=== PATIENT | female | born 1955 | race Caucasian/White ===

== ENCOUNTER → 2018-11-30 13:29 | Outpatient (REF) | payer OTHER, MEDICARE, SELFPAY ==
[2018-11-30 13:59] LABS: Influenza A and B by PCR Rapid Negative (Negative)
== END ==
LOC: LAB 13:29
PROVIDERS: Family Provider Family Medicine; PCP Family Medicine; Visit Provider Family Medicine
DX: R05 Cough (principal)
CPT/HCPCS: 87400

== ENCOUNTER → 2019-01-11 08:05 | Outpatient (CLI) | payer OTHER, SELFPAY ==
--- NOTE | 2019-01-11 08:17 | DI.CT.S_ITS ---
PROCEDURE: CT SINUS SCREEN WO CON INDICATIONS: Chronic sinusitis, unspecified TECHNIQUE: Noncontrast 3.0 mm axial images acquired from the frontal sinuses to the mid-sella, with coronal and sagittal reformats. For radiation dose reduction, the following was used: automated exposure control, adjustment of mA and/or kV according to patient size. COMPARISON: None. FINDINGS: Image quality: Excellent. Maxillary Sinuses: No bony remodeling or destruction. Sinuses are clear except for a moderately large mucous retention cyst that is sharply demarcated within the inferior right maxillary sinus. Ethmoid Air Cells: No bony remodeling or destruction. Sinuses are clear. Sphenoid Sinuses: No bony remodeling or destruction. Sinuses are clear. Frontal Sinuses: No bony remodeling or destruction. Sinuses are clear. Ostiomeatal Complexes: Ostiomeatal complexes are patent. No Lauren cells. Miscellaneous: Visualized intra-orbital contents are normal. No veronica bullosa or paradoxical turbinate curvature. No nasal septal deviation. IMPRESSION: Right maxillary sinus moderately large mucous retention cyst without associated mucosal thickening or air-fluid level elsewhere. By this examination no acute sinusitis is found. Dictated by: Eduardo Hamm M.D. on 01/11/2019 at 9:08 Approved by: Eduardo Hamm M.D. on 01/11/2019 at 9:30
== END ==
PROVIDERS: PCP Family Medicine; Visit Provider Family Medicine
DX: J32.9 Chronic sinusitis, unspecified (principal); J34.1 Cyst and mucocele of nose and nasal sinus
CPT/HCPCS: 70486

== ENCOUNTER → 2019-01-14 13:18 | Outpatient (CLI) | payer OTHER, SELFPAY ==
--- NOTE | 2019-01-14 | DI.RAD.S_ITS ---
PROCEDURE: XR CHEST 2V INDICATIONS: COUGH TECHNIQUE: 2 views of the chest were acquired. COMPARISON: [facility], , CHEST 2 VIEW, 12/20/2009, 15:30. FINDINGS: Surgical changes and devices: Extensive posterior spinal instrumentation as before. Lungs and pleura: Lungs are clear. No pleural effusions or pneumothorax. Mediastinum: Mediastinal contours are normal. Heart size is normal. Bones and chest wall: No suspicious bony abnormalities. Soft tissues appear unremarkable. IMPRESSION: No acute disease Dictated by: Satish Addison M.D. on 01/14/2019 at 17:07 Approved by: Satish Addison M.D. on 01/14/2019 at 17:08
== END ==
PROVIDERS: PCP Family Medicine; Visit Provider Family Medicine
DX: R05 Cough (principal)
CPT/HCPCS: 71046

== ENCOUNTER → 2019-02-04 14:55 | Outpatient (ROUT) | payer OTHER, SELFPAY ==
[2019-02-04 15:30] LABS: Influenza A and B by PCR Rapid Negative (Negative)
== END ==
PROVIDERS: PCP Family Medicine; Visit Provider Family Medicine
DX: R52 Pain, unspecified (principal); R50.9 Fever, unspecified
CPT/HCPCS: 87400

== ENCOUNTER → 2019-02-19 15:02 | Outpatient (CLI) | payer OTHER, MEDICARE, SELFPAY ==
--- NOTE | 2019-02-19 | DI.RAD.S_ITS ---
PROCEDURE: XR CHEST 2V INDICATIONS: COUGH TECHNIQUE: 2 views of the chest were acquired. COMPARISON: [facility], , XR CHEST 2V, 01/14/2019, 13:20. [facility], , CHEST 2 VIEW, 12/20/2009, 15:30. FINDINGS: Surgical changes and devices: Franco rods stable over time. Lungs and pleura: Lungs are clear. No pleural effusions or pneumothorax. Mediastinum: Mediastinal contours are normal. Heart size is normal. Bones and chest wall: No suspicious bony abnormalities. Soft tissues appear unremarkable. IMPRESSION: Source of cough not found. Dictated by: Eduardo Hamm M.D. on 02/19/2019 at 15:42 Approved by: Eduardo Hamm M.D. on 02/19/2019 at 15:44
== END ==
PROVIDERS: PCP Family Medicine; Visit Provider Family Medicine
DX: R05 Cough (principal)
CPT/HCPCS: 71046

== ENCOUNTER → 2019-03-19 17:44 | Outpatient (CLI) | payer OTHER, MEDICARE, SELFPAY ==
[2019-03-19 18:20] LABS: Add Manual Diff / Slide Review NO; Basophils Absolute Auto 100 /uL (0-100); Basophils Percent Auto 0.7 % (0-2); Eosinophils Absolute Auto 300 /uL (0-450); Hemoglobin 13.4 g/dL (12.0-16.0); Lymphocytes Absolute Auto 2400 /uL (1100-4500); Mean Corpuscular HGB Conc 33.4 % (30-36); Mean Corpuscular Hemoglobin 30.6 PG (26-34); Mean Corpuscular Volume 91.5 fL (80-100); Monocytes Absolute Auto 1000 /uL (0-900); Monocytes Percent Auto 10.5 % (3-14); Neutrophils Absolute Auto 5600 /uL (1500-7000); Neutrophils Percent Auto 59.8 % (50-75); Platelet Count 347 X10^3/uL (150-400); Red Blood Cell Count 4.37 X10^6/uL (4.0-5.2); Red Cell Distribution Width 14.9 % (11.6-14.8); White Blood Cell Count 9.4 X10^3/uL (4.5-11.0)
[2019-03-19 18:29] LABS: C-Reactive Protein Quant 1.6 mg/dL (<1.0)
[2019-03-19 18:45] LABS: Erythrocyte Sedimentation Rate 20 MM/HR (0-20)
== END ==
PROVIDERS: PCP Family Medicine; Visit Provider Family Medicine
DX: J32.9 Chronic sinusitis, unspecified (principal)
CPT/HCPCS: 36415; 85025; 85651; 86140

== ENCOUNTER → 2019-03-23 10:32 | Outpatient (CLI) | payer OTHER, SELFPAY ==
--- NOTE | 2019-03-23 | DI.CT.S_ITS ---
PROCEDURE: CT SINUS SCREEN WO CON INDICATIONS: Chronic sinusitis, unspecified TECHNIQUE: Noncontrast 3.0 mm axial images acquired from the frontal sinuses to the mid-sella, with coronal and sagittal reformats. For radiation dose reduction, the following was used: automated exposure control, adjustment of mA and/or kV according to patient size. COMPARISON: [facility], CT, CT SINUS SCREEN WO CON, 01/11/2019, 8:14. FINDINGS: Image quality: Excellent. Bilateral partial opacification of the anterior ethmoid air cells. There is near-complete opacification of the right maxillary sinus. Mild left maxillary sinus because of thickening. Mild opacification of the anterior frontal sinuses bilaterally. Sphenoid sinuses appear clear. Ostiomeatal Complexes: Ostiomeatal complexes are opacified bilaterally. No Lauren cells. Miscellaneous: Visualized intra-orbital contents are normal. No veronica bullosa or paradoxical turbinate curvature. No nasal septal deviation. IMPRESSION: Bilateral ethmoid, maxillary and frontal sinus disease which appears diffusely progressed since prior study dated 01/09/19 Opacified ostiomeatal complexes bilaterally, new since the prior study Dictated by: Satish Addison M.D. on 03/23/2019 at 13:55 Approved by: Satish Addison M.D. on 03/23/2019 at 13:59
== END ==
PROVIDERS: PCP Family Medicine; Visit Provider Family Medicine
DX: J32.8 Other chronic sinusitis (principal)
CPT/HCPCS: 70486

== ENCOUNTER → 2019-08-06 13:20 | Outpatient (ROUT) | payer OTHER, SELFPAY ==
[2019-08-06 13:49] LABS: Influenza A and B by PCR Rapid Negative (Negative)
== END ==
PROVIDERS: PCP Family Medicine; Visit Provider Nurse Practitioner Family
DX: R50.9 Fever, unspecified (principal); R19.7 Diarrhea, unspecified; R11.0 Nausea; R52 Pain, unspecified
CPT/HCPCS: 87502

== ENCOUNTER → 2019-08-09 12:54 | Outpatient (CLI) | payer OTHER, SELFPAY ==
--- NOTE | 2019-08-09 | DI.RAD.S_ITS ---
PROCEDURE: XR CHEST 2V INDICATIONS: COUGH TECHNIQUE: 2 views of the chest were acquired. COMPARISON: [facility], CR, XR CHEST 2V, 01/14/2019, 13:20. [facility], CR, XR CHEST 2V, 02/19/2019, 15:08. FINDINGS: Surgical changes and devices: Prostatic and lumbar spine fusion. Lungs and pleura: Left basilar infiltrate. No pleural effusions or pneumothorax. Mediastinum: Mediastinal contours are normal. Heart size is normal. Bones and chest wall: No suspicious bony abnormalities. Soft tissues appear unremarkable. IMPRESSION: Left basilar infiltrate consistent with pneumonia. Dictated by: Kyra Velasquez M.D. on 08/09/2019 at 13:50 Approved by: Kyra Velasquez M.D. on 08/09/2019 at 14:01
== END ==
PROVIDERS: PCP Family Medicine; Visit Provider Family Medicine
DX: R05 Cough (principal); Z98.1 Arthrodesis status
CPT/HCPCS: 71046

== ENCOUNTER → 2019-09-03 07:53 | Outpatient (CLI) | payer OTHER, SELFPAY ==
--- NOTE | 2019-09-03 | DI.RAD.S_ITS ---
PROCEDURE: XR CHEST 2V INDICATIONS: COUGH TECHNIQUE: 2 views of the chest were acquired. COMPARISON: [facility], CR, XR CHEST 2V, 08/09/2019, 12:55. FINDINGS: Surgical changes and devices: Thoracolumbar fixation rods are present. Lungs and pleura: Decreased appearance of previously identified left lower lobe opacity. Minimal residual is noted. Mediastinum: Mediastinal contours are normal. Heart size is normal. Bones and chest wall: No suspicious bony abnormalities. Soft tissues appear unremarkable. IMPRESSION: Minimal residual opacity in the left lobe compared to prior exam. Dictated by: Luna Gonzales M.D. on 09/03/2019 at 9:11 Approved by: Luna Gonzales M.D. on 09/03/2019 at 9:12
== END ==
PROVIDERS: PCP Family Medicine; Visit Provider Family Medicine
DX: R05 Cough (principal)
CPT/HCPCS: 71046

== ENCOUNTER → 2019-10-11 08:14 | Outpatient (CLI) | payer OTHER, SELFPAY ==
--- NOTE | 2019-10-11 | DI.RAD.S_ITS ---
PROCEDURE: XR CHEST 2V INDICATIONS: PNEUMONIA TECHNIQUE: 2 views of the chest were acquired. COMPARISON: [facility], CR, XR CHEST 2V, 09/03/2019, 8:00. [facility], CR, XR CHEST 2V, 08/09/2019, 12:55. FINDINGS: Surgical changes and devices: Stable over time, posterior spine fixation. Lungs and pleura: Lungs are clear except for minimal linear scarring left lung base behind the heart. No pleural effusions or pneumothorax. Mediastinum: Mediastinal contours are normal except for a small hiatal hernia behind the heart. Heart size is normal. Bones and chest wall: No suspicious bony abnormalities. Soft tissues appear unremarkable. IMPRESSION: Minimal linear scarring found behind the heart, small hiatal hernia at the medial left lung base posteriorly. No definite pneumonia found. Dictated by: Eduardo Hamm M.D. on 10/11/2019 at 9:29 Approved by: Eduardo Hamm M.D. on 10/11/2019 at 9:38
== END ==
PROVIDERS: PCP Family Medicine; Visit Provider Family Medicine
DX: J18.9 Pneumonia, unspecified organism (principal); K44.9 Diaphragmatic hernia without obstruction or gangrene
CPT/HCPCS: 71046

== ENCOUNTER → 2019-10-29 07:00 | Outpatient (CLI) | payer OTHER, SELFPAY ==
--- NOTE | 2019-10-29 | DI.CT.S_ITS ---
PROCEDURE: CT CHEST W CON INDICATIONS: Pneumonia, unspecified organism TECHNIQUE: After the administration of intravenous contrast, 5 mm thick sections acquired from the pulmonary apices to the posterior costophrenic angles. 1 mm axial lung, 5 mm thick coronal and sagittal reformats and 7 mm axial MIP were acquired. For radiation dose reduction, the following was used: automated exposure control, adjustment of mA and/or kV according to patient size. COMPARISON: [facility], CR, XR CHEST 2V, 10/11/2019, 8:11. FINDINGS: Image quality: Excellent. Lungs and pleura: Linear atelectasis versus scarring, left lung base. No pleural effusions or pneumothorax. Central and peripheral airways are patent and normal in caliber. Mediastinum: Heart size is normal. No pericardial effusion. No mediastinal or hilar adenopathy by size criteria. Thoracic aorta and central pulmonary arteries are normal in size. Esophagus is normal in caliber. Moderate hiatal hernia. Bones and chest wall: Bilateral Franco rods. No suspicious bony lesions. No vertebral body compression fractures. No axillary or supraclavicular adenopathy by size criteria. Thyroid gland contains a 1.1 cm right thyroid nodule and a subcentimeter left thyroid nodule.. Abdomen: Hepatic steatosis. 2 probable hepatic cysts versus hemangiomata. IMPRESSION: 1. Linear atelectasis versus scarring, left lung base. 2. Moderate hiatal hernia. 3. Bilateral small thyroid nodules. Dictated by: Mehran Castillo M.D. on 10/29/2019 at 10:16 Approved by: Mehran Castillo M.D. on 10/29/2019 at 10:19
[2019-10-29 07:36] LABS: BUN Creatinine Ratio 25.7 (6-22); Blood Urea Nitrogen 18 mg/dL (7-17); Estimated Glomerular Filt Rate > 60.0 mL/min (>60)
== END ==
PROVIDERS: PCP Family Medicine; Referring Provider Family Medicine; Visit Provider Family Medicine
DX: J18.9 Pneumonia, unspecified organism (principal); K44.9 Diaphragmatic hernia without obstruction or gangrene; E04.2 Nontoxic multinodular goiter
CPT/HCPCS: 36415; 71260; 82565; 84520; Q9967

== ENCOUNTER → 2019-11-05 07:11 | Outpatient (CLI) | payer OTHER, SELFPAY ==
--- NOTE | 2019-11-05 | DI.US.S_ITS ---
PROCEDURE: US THYROID INDICATIONS: LIVER CYST AND THYROID NODULE TECHNIQUE: Real-time scanning was performed of the thyroid gland, with image documentation. COMPARISON: None. FINDINGS: Right: Thyroid lobe measures 4.4 x 1.9 x 1.8 cm, and is homogeneous in echotexture. Multiple colloid cysts. Left: Thyroid lobe measures 3.8 x 1.4 x 1.5 cm, and is homogenous in echotexture. Isthmus: 3.0 mm thick. IMPRESSION: Multiple colloid cysts bilaterally. Dictated by: Yung Owens [facility] Interpreted: Daniel Owusu MD on 11/05/2019 at 9:57 Approved by: Daniel Owusu M.D. on 11/05/2019 at 11:22
--- NOTE | 2019-11-05 | DI.US.S_ITS ---
PROCEDURE: US ABDOMEN COMPLETE INDICATIONS: LIVER CYST AND THYROID NODULE TECHNIQUE: Real-time scanning was performed of the abdominal and retroperitoneal organs, with image documentation. COMPARISON: [facility], CT, CT CHEST W CON, 10/29/2019, 7:58. [facility], US, ABDOMEN COMPLETE, 12/20/2009, 13:37. FINDINGS: Liver: Measures 15.9 cm and appears within normal limits in size. Increased in echogenicity. A few anechoic cyst with posterior acoustic enhancement. For example in the right lobe peripherally at the dome 1.7 x 1.2 x 1.6 cm; and subcentimeter cluster of cysts. Gallbladder: Nondilated. No stones or sludge. Normal gallbladder wall thickness. No pericholecystic fluid. Negative sonographic Rowe's sign. Biliary ducts: Not well-seen. No intrahepatic ductal dilatation identified. CHD measures 3 mm. Pancreas: Visualized portions of the pancreas are sonographically normal. Spleen: Spleen is normal in size and homogeneous in echotexture. Kidneys: Right kidney measures 10.9 cm. Left kidney measures 11.8 cm. Extrarenal pelvis versus small peripelvic cysts. No hydronephrosis. Aorta: Not well-seen. Iliacs: Not well-seen. IVC: Intrahepatic inferior vena cava is patent. Miscellaneous: No free abdominal fluid. IMPRESSION: 1. Increased hepatic echogenicity most consistent with hepatic steatosis. Other forms of hepatocellular disease could have similar appearance. 2. Small benign hepatic cysts. 3. No gallstones. Dictated by: Russel Junior M.D. on 11/05/2019 at 10:07 Approved by: Russel Junior M.D. on 11/05/2019 at 10:15
== END ==
PROVIDERS: PCP Family Medicine; Referring Provider Family Medicine; Visit Provider Family Medicine
DX: K76.89 Other specified diseases of liver (principal); E04.2 Nontoxic multinodular goiter
CPT/HCPCS: 76536; 76700

== ENCOUNTER → 2020-10-27 12:48 | Outpatient (ROUT) | payer OTHER, SELFPAY ==
[2020-10-27 13:26] LABS: Influenza A - CEPHEID Flu A NEGATIVE (NEGATIVE); Influenza B - CEPHEID Flu B NEGATIVE (NEGATIVE)
== END ==
PROVIDERS: PCP Family Medicine; Visit Provider Nurse Practitioner Family
DX: R50.9 Fever, unspecified (principal)
CPT/HCPCS: 87502

== ENCOUNTER → 2021-01-08 11:56 | Outpatient (CLI) | payer OTHER, SELFPAY ==
--- NOTE | 2021-01-08 11:57 | DI.US.S_ITS ---
PROCEDURE: US THYROID INDICATIONS: THYROID NODULES TECHNIQUE: Real-time scanning was performed of the thyroid gland, with image documentation. COMPARISON: [facility], US, US THYROID, 11/05/2019, 8:36. FINDINGS: Right: Thyroid lobe measures 4.4 x 1.4 x 1.6 cm, and is homogeneous in diffusely heterogeneous and multiple colloid cysts redemonstrated. Left: Thyroid lobe measures 3.8 x 1.5 x 1.5 cm, and is diffusely heterogeneous and there multiple colloid cyst redemonstrated Isthmus: 1.4 mm thick. Impression: Multiple bilateral colloid cysts redemonstrated which appears similar to prior exam. Dictated by: Yung Owens [facility] Interpreted: Kai Perez MD on 01/08/2021 at 15:00 Approved by: Kai Perez M.D. on 01/11/2021 at 14:10
--- NOTE | 2021-01-08 11:57 | DI.US.S_ITS ---
PROCEDURE: US ABDOMEN LIMITED INDICATIONS: Evaluate for liver cysts. TECHNIQUE: Real-time focused scanning was performed of the abdomen, with image documentation. COMPARISON: [facility], US, US ABDOMEN COMPLETE, 11/05/2019, 8:09. FINDINGS: The liver is 15.3 cm craniocaudad and hyperechoic echotexture indicates diffuse fatty infiltration. There is a simple right anterior hepatic lobe cyst measuring 1.8 x 0.9 x 1.5 cm and 2 adjacent 5 mm cysts. Within the anterior right hepatic lobe also is a small septated cyst measuring 1.0 x 0.7 x 0.7 cm. No solid lesion is seen. IMPRESSION: Small hepatic cysts, no solid mass lesion, no follow-up recommended. Hyperechoic liver echotexture consistent with diffuse hepatic steatosis. Dictated by: Eduardo Hamm M.D. on 01/08/2021 at 14:33 Approved by: Eduardo Hamm M.D. on 01/08/2021 at 14:36
--- NOTE | 2021-01-08 11:58 | DI.CT.S_ITS ---
PROCEDURE: CT CHEST W CON INDICATIONS: REACTIVE AIRWAY TECHNIQUE: After the administration of intravenous contrast, 5 mm thick sections acquired from the pulmonary apices to the posterior costophrenic angles. 1 mm axial lung, 5 mm thick coronal and sagittal reformats and 7 mm axial MIP were acquired. For radiation dose reduction, the following was used: automated exposure control, adjustment of mA and/or kV according to patient size. COMPARISON: [facility], CT, CT CHEST W CON, 10/29/2019, 7:58. FINDINGS: Image quality: Excellent. Lungs and pleura: No acute air space opacities. There is minimal lung parenchymal scarring at each lung base, left slightly greater than right. No pleural effusions or pneumothorax. Central and peripheral airways are patent and normal in caliber. Mediastinum: Heart size is normal. No pericardial effusion. No mediastinal or hilar adenopathy by size criteria. Thoracic aorta and central pulmonary arteries are normal in size. Esophagus is normal in caliber. No hiatal hernia. Bones and chest wall: No suspicious bony lesions. No vertebral body compression fractures. No axillary or supraclavicular adenopathy by size criteria. Thyroid gland is unchanged with a 1.1 cm right thyroid nodule and a sub cm left thyroid nodule, virtually identical in morphology when compared to the prior study from October of last year.. Abdomen: Visualized upper abdominal solid organs appear unchanged. A water density cyst is present measuring up to 1.6 cm at the superior right hepatic lobe, and slightly more inferiorly at the lateral subcapsular right hepatic border there is an ovoid higher density structure that was previously present without change from 11/11, and more inferiorly within the right posterior hepatic segment is a subcapsular mildly angular similar-sized hepatic radiodensity having imaging appearance most likely of hemangioma. Upper abdominal bowel loops are normal in caliber. IMPRESSION: Stable appearance of the lung parenchyma with minimal linear scarring at each lung base, left greater than right, unchanged from 10/29/19. Stable appearance of the thyroid gland, with 1.1-sub cm anterior mid thyroid radiodensities identical in appearance to that of 11/11 and consistent with small cysts or thyroid nodules. There is stable appearance of the liver parenchyma where 1 cyst and 2 possible atypical hemangiomas are present identical in appearance to that present 10/29/19. No specific follow-up recommended. Dictated by: Eduardo Hamm M.D. on 01/08/2021 at 14:07 Approved by: Eduardo Hamm M.D. on 01/08/2021 at 14:14
== END ==
PROVIDERS: PCP Family Medicine; Referring Provider Family Medicine; Visit Provider Family Medicine
DX: J45.909 Unspecified asthma, uncomplicated (principal); E04.1 Nontoxic single thyroid nodule; K76.89 Other specified diseases of liver
CPT/HCPCS: 71260; 76536; 76705

== ENCOUNTER → 2021-03-05 13:50 | Outpatient (CLI) | payer OTHER, SELFPAY ==
[2021-03-05 17:23] LABS: COVID19 -Nasal RAPID Negative (Negative)
== END ==
PROVIDERS: PCP Family Medicine; Visit Provider Physician Assistant
DX: Z01.812 Encounter for preprocedural laboratory examination (principal); Z20.822 Contact with and (suspected) exposure to COVID-19
CPT/HCPCS: 87635

== ENCOUNTER → 2021-04-02 09:27 | Outpatient (CLI) | payer OTHER, SELFPAY ==
--- NOTE | 2021-04-02 09:28 | DI.RAD.S_ITS ---
PROCEDURE: XR DEXA AXIAL SKELETON INDICATIONS: OSTEOPENIA COMPARISON: None. FINDINGS: This blank DEXA report has been sent in error by the PACS system. The correct and complete report will be forthcoming in 1-2 days. Thank you for your patience and understanding. Dictated by: Mirna Moreira MD, PhD on 04/02/2021 at 13:52 Approved by: Mirna Moreira MD, PhD on 04/02/2021 at 13:52
--- NOTE | 2021-04-02 09:28 | DI.MG.S_ITS ---
BILATERAL DIGITAL SCREENING MAMMOGRAM 3D/2D WITH CAD: 04/02/2021 CLINICAL: Routine screening. Family history of breast cancer. Comparison is made to exams dated: 04/03/2016 mammogram, 09/19/2015 mammogram, and 01/24/2014 mammogram - [facility]. There are scattered fibroglandular elements in both breasts. Current study was also evaluated with a Computer Aided Detection (CAD) system. There are benign calcifications in both breasts. No significant masses, calcifications, or other findings are seen in either breast. There has been no significant interval change. IMPRESSION: BENIGN There is no mammographic evidence of malignancy. A 1 year screening mammogram is recommended. This exam was interpreted at Station ID: [id number]. NOTE: For mammograms, a report in lay terms will be sent to the patient. Approximately 15% of breast malignancies will not be visualized mammographically. In the management of a palpable breast mass, a negative mammogram must not discourage biopsy of a clinically suspicious lesion. Electronically Signed By: Bryan nguyen/rodrigue:04/02/2021 10:01:22 letter sent: Normal Exam ACR BI-RADS Category 2: Benign Finding(s) [id number]
== END ==
PROVIDERS: PCP Family Medicine; Referring Provider Family Medicine; Visit Provider Family Medicine
DX: Z12.31 Encounter for screening mammogram for malignant neoplasm of breast (principal); M85.832 Other specified disorders of bone density and structure, left forearm; Z80.3 Family history of malignant neoplasm of breast; Z78.0 Asymptomatic menopausal state; Z87.891 Personal history of nicotine dependence
CPT/HCPCS: 77063; 77067; 77080; 77081

== ENCOUNTER → 2021-05-04 11:49 | Outpatient (CLI) | payer OTHER, SELFPAY ==
--- NOTE | 2021-05-04 11:54 | DI.RAD.S_ITS ---
PROCEDURE: XR CHEST 2V INDICATIONS: cough TECHNIQUE: 2 views of the chest were acquired. COMPARISON: [facility], CR, XR CHEST 2V, 10/11/2019, 8:11. FINDINGS: Surgical changes and devices: Multilevel posterior spine fixation redemonstrated with incomplete visualization of the inferior hardware. Lungs and pleura: Small left basilar pleural effusion and consolidation at the left base appears new from prior examination. Right lung is clear. No pneumothorax. Mediastinum: Mediastinal contours are normal. Heart size is normal. Bones and chest wall: No suspicious bony abnormalities. Soft tissues appear unremarkable. IMPRESSION: 1. Small left basilar pleural effusion and airspace opacity consistent with compressive atelectasis versus pneumonia or neoplasm. Continued radiographic surveillance to resolution is recommended. Dictated by: Yung Owens [facility] Interpreted: Lio Dubose MD on 05/04/2021 at 12:48 Transcribed by: RODNEY on 05/04/2021 at 12:49 Approved by: Lio Dubose M.D. on 05/04/2021 at 13:38
== END ==
PROVIDERS: PCP Family Medicine; Referring Provider Family Medicine; Visit Provider Family Medicine
DX: R05 Cough (principal); R06.09 Other forms of dyspnea; J45.909 Unspecified asthma, uncomplicated; J90 Pleural effusion, not elsewhere classified
CPT/HCPCS: 71046

== ENCOUNTER → 2021-06-01 11:21 | Outpatient (CLI) | payer OTHER, SELFPAY ==
[2021-06-01 14:25] LABS: COVID19 -Nasal RAPID Negative (Negative)
== END ==
PROVIDERS: PCP Family Medicine; Visit Provider Nurse Practitioner
DX: Z20.822 Contact with and (suspected) exposure to COVID-19 (principal)
CPT/HCPCS: 87635

== ENCOUNTER → 2021-06-04 09:59 | Outpatient (CLI) | payer OTHER, SELFPAY ==
--- NOTE | 2021-06-04 | DI.RAD.S_ITS ---
PROCEDURE: XR CHEST 2V INDICATIONS: COUGH TECHNIQUE: 2 views of the chest were acquired. COMPARISON: [facility], CR, XR CHEST 2V, 05/04/2021, 12:02. FINDINGS: Surgical changes and devices: Multilevel posterior spine fixation redemonstrated with incomplete visualization of the inferior hardware. Lungs and pleura: Resolved left basilar pleural effusion and interval decrease in left basilar airspace opacity with minimal density. Right lung is clear. No pneumothorax. Mediastinum: Mediastinal contours are normal. Heart size is normal. Bones and chest wall: No suspicious bony abnormalities. Soft tissues appear unremarkable. IMPRESSION: 1. Resolved left basilar pleural effusion and decreasing airspace opacity. Continued radiographic surveillance to resolution is recommended. Dictated by: Yung Owens [facility] Interpreted: Leon Mandel MD on 06/04/2021 at 10:22 Transcribed by: JERI on 06/04/2021 at 10:28 Approved by: Leon Mandel M.D. on 06/04/2021 at 16:47
--- NOTE | 2021-06-04 21:30 | DI.NM.S_ITS ---
DATE OF SERVICE: 06/04/2021 PROCEDURE PERFORMED: Exercise perfusion study. INDICATIONS: Dyspnea on exertion and chest pain. RADIOPHARMACEUTICAL: 25.7 millicurie technetium-99m Myoview IV was injected at stress and 11.3 millicurie technetium-99m Myoview IV was injected at rest. CARDIAC STRESS: The patient underwent exercise perfusion study under the supervision of an attending staff. The patient walked on [place] protocol for 5 minutes and 17 seconds, achieved 91 percent of target heart rate. Baseline blood pressure 154/84. Peak blood pressure 200/80. The patient felt fatigue and shortness of breath. AR positive 10 percent. Baseline rhythm was sinus. During stress no convincing ischemic changes. Oxygen saturation remained more than 90 percent. No significant sustained arrhythmias seen. RAW DATA: There is increased subdiaphragmatic activity. GATED STUDY: Stress LV ejection fraction 82 percent and resting LV ejection fraction is 72 percent without any obvious wall motion abnormalities. Resting end-diastolic volume 72 mL. TID ratio 0.89, which is within normal limits. Lung/heart ratio 0.33, which is within normal limits. MYOCARDIAL PERFUSION SCAN: Stress supine, resting supine and stress prone images were compared to each other. Stress supine and resting supine images revealed moderate-size, mild to moderately decreased perfusion of distal anterior wall extending into the distal anteroseptum and anteroapex, which got significantly improved during stress prone images, suggestive of tissue attenuation artifact. No convincing ischemia seen. CONCLUSION: I will call this study likely a normal myocardial perfusion study with evidence of tissue attenuation artifact, which got improved during prone images, as stated above. Diminished exercise tolerance. Normal hemodynamic response. No obvious ischemic electrocardiographic changes. Left ventricular function is preserved. Overall, this is a low-risk exercise perfusion study. Correlate clinically. Aleena Newton - AUSTYN/ed/rubina doc#: [id number]/job#: [id number] dd: 06/04/2021 17:13:00 dt: 06/04/2021 20:49:00 DICTATING MD/COPIES TO: Lucy Colvin MD COPIES MNE: NED;
== END ==
PROVIDERS: PCP Family Medicine; Referring Provider Family Medicine; Visit Provider Family Medicine
DX: R06.09 Other forms of dyspnea (principal); R07.9 Chest pain, unspecified; R05 Cough; J45.909 Unspecified asthma, uncomplicated
CPT/HCPCS: 71046; 78452; 93017; A9502

== ENCOUNTER → 2021-07-20 09:09 | Outpatient (CLI) | payer OTHER, SELFPAY ==
--- NOTE | 2021-07-20 | DI.ECHO.S_ITS ---
[place] [facility]---------+ [facility] +---------+ : : [address] : [address] : : : : [id number] : : : : Phone: [phone]+ Echocardiogram Report + + :Name: JOAN QUEZADA Study Date: 07/20/2021 Height: 63 in : :[facility] ReadingLocation: Weight: 165 lb : : Gender: Female BSA: 1.8 m2 : :: 1955 Age: 66 yrs BP: 151/91 mmHg: :Reason For Study: Dyspnea : : Performed By: VERONICA BHATT : :Referring: ADRIAN DAVIS : + + Interpretation Summary Borderline concentric left ventricular hypertrophy with ejection fraction 55- 60%. Diastolic parameters suggest a relaxation abnormality of the left ventricle, consistent with probable normal filling pressures. Mildly dilated right atrium. Mild mitral regurgitation. Mild tricuspid regurgitation. Procedure: A two-dimensional transthoracic echocardiogram with color flow and Doppler was performed. The subcostal views were difficult to obtain and are suboptimal in quality. There is no prior echocardiogram noted for this patient. Fair image quality. The patient was in normal sinus rhythm during the exam. Left Ventricle: There is borderline concentric left ventricular hypertrophy. The ejection fraction is estimated to be 55-60%. There are no focal wall motion abnormalities. Diastolic parameters suggest a relaxation abnormality of the left ventricle, consistent with probable normal filling pressures. Right Ventricle: The right ventricle is normal in size and function. Atria: The left atrial size is normal. The right atrium is mildly dilated. There is no Doppler evidence for an interatrial shunt. Mitral Valve: The mitral valve is normal. There is mild mitral regurgitation. Aortic Valve: The aortic valve is trileaflet. The aortic valve opens well. There is trace aortic regurgitation. Tricuspid Valve: The tricuspid valve is normal. There is mild tricuspid regurgitation. Right ventricular systolic pressure is estimated to be 28 mmHg plus the clinically estimated CVP which cannot be estimated on this exam. Pulmonic Valve: The pulmonic valve leaflets are thin and pliable; valve motion is normal. There is a trace or physiologic amount of pulmonic regurgitation. Great Vessels: The aortic root is normal size. The ascending aorta is normal in size. The aortic arch is normal in size. The inferior vena cava was not well visualized. Pericardium/ Pleura There is no pericardial effusion. There is an anterior echo-free space consistent with a fat pad. There is no pleural effusion. MMode/2D Measurements & Calculations LVIDd: 3.5 cm LVOT diam: 1.7 cm LVIDs: 2.3 cm Ao root diam: 2.5 cm FS: 33.6 % asc Aorta Diam: 3.4 cm IVSd: 0.94 cm Ao Arch Diam (Prox Trans): 3.3 cm LVPWd: 0.91 cm LV paz. diameter/BSA (cm/m^2): 2.0 LV sys. diameter/BSA (cm/m^2): 1.3 LA A2 area: 20.0 cm2 RA long axis: 5.4 cm LA A4 area: 17.6 cm2 RA area: 17.2 cm2 LA length (vol): 5.5 cm RA vol: 46.4 ml LA vol: 54.6 ml RA : 26.0 ml/m2 LA vol index: 30.6 ml/m2 RVD1 (basal): 3.3 cm TAPSE: 2.1 cm Doppler Measurements & Calculations Ao V2 max: 150.3 cm/sec LVOT Max Salas: 99.3 cm/sec Ao V2 mean: 104.9 cm/sec LV V1 max P.9 mmHg Ao max P.0 mmHg LV V1 VTI: 18.6 cm Ao mean P.8 mmHg MICHELLE(I,D): 1.5 cm2 Ao V2 VTI: 27.9 cm MICHELLE(V,D): 1.5 cm2 sev ratio: 0.67 MICHELLE indexed to BSA (cm^2/m^2): 0.86 MV E max salas: 65.8 cm/sec TR max salas: 262.3 cm/sec MV A max salas: 109.6 cm/sec TR max P.5 mmHg MV E/A: 0.60 PA V2 max: 80.3 cm/sec Med Peak E' Salas: 3.7 cm/sec PA V2 mean: 59.0 cm/sec E/E' med: 17.6 PA mean P.5 mmHg Lat Peak E' Salas: 5.8 cm/sec PA pr(Accel): 37.9 mmHg E/E' lat: 11.3 E/e' average: 14.4 MV dec time: 0.32 sec SV(LVOT): 42.8 ml Electronically signed by: Tan Sanchez on Reading Physician:07/20/2021 02:42 PM
== END ==
PROVIDERS: PCP Family Medicine; Referring Provider Family Medicine; Visit Provider Family Medicine
DX: I08.1 Rheumatic disorders of both mitral and tricuspid valves (principal); R06.09 Other forms of dyspnea
CPT/HCPCS: 93306

== ENCOUNTER → 2021-07-25 10:47 | Outpatient (CLI) | payer OTHER, SELFPAY ==
--- NOTE | 2021-07-25 10:49 | DI.RAD.S_ITS ---
PROCEDURE: XR CHEST 2V INDICATIONS: PNEUMONIA TECHNIQUE: 2 views of the chest were acquired. COMPARISON: [facility], CR, XR CHEST 2V, 06/04/2021, 10:01. FINDINGS: Surgical changes and devices: Redemonstrated posterior element rods. Lungs and pleura: Improved aeration of the left lower lung zone with persistent linear density in the left lower lung zone, compatible with plate atelectasis/scarring. No consolidation, pleural effusions or pneumothorax. Mediastinum: Mediastinal contours are normal. Heart size is normal. Bones and chest wall: No suspicious bony abnormalities. Soft tissues appear unremarkable. IMPRESSION: No acute cardiopulmonary abnormality. Dictated by: Nii Chavez M.D. on 07/25/2021 at 12:05 Approved by: Nii Chavez M.D. on 07/25/2021 at 12:06
== END ==
PROVIDERS: PCP Family Medicine; Referring Provider Family Medicine; Visit Provider Family Medicine
DX: J18.9 Pneumonia, unspecified organism (principal)
CPT/HCPCS: 71046

== ENCOUNTER → 2021-11-12 11:32 | Outpatient (CLI) | payer OTHER, SELFPAY ==
[2021-11-12 13:40] LABS: COVID19 -Nasal RAPID Negative (Negative)
== END ==
PROVIDERS: PCP Family Medicine; Visit Provider Family Medicine Sleep Medicine
DX: Z20.822 Contact with and (suspected) exposure to COVID-19 (principal)
CPT/HCPCS: 87635; C9803

== ENCOUNTER 2021-11-14 08:41 | Day surgery (SDC) | payer OTHER, SELFPAY ==
--- NOTE | 2021-11-14 | PATH_ITS ---
[facility] Accession Number: [id number] . 01 Material submitted: . PART A: esophagus - ESOPHAGEAL PART B: stomach - STOMACH . 01 Diagnosis: A. Esophagus, Biopsies: Squamocolumnar junctional mucosa with mild chronic inflammation. Negative for specialized intestinal metaplasia on AB/PAS stain. Negative for dysplasia or malignancy. . B. Stomach, Biopsies: Gastric antral and body mucosa with mild chronic inflammation. Negative for Helicobacter organisms by immunohistochemistry. Negative for intestinal metaplasia. Negative for dysplasia or malignancy. [facility] 11/19/2021 1637 Local . 01 Electronically signed: . Cordell Henry MD, PhD, Pathologist NPI- [id number] . 01 Gross description: . Part A: ESOPHAGEAL: Received in formalin is 1 fragment(s) of tripp, soft tissue measuring 0.4 x 0.2 x 0.1 cm submitted entirely in 1 cassette(s) Part B: STOMACH: Received in formalin are 2 fragment(s) of tripp, soft tissue measuring 0.3 x 0.2 x 0.2 cm to 0.2 x 0.1 x 0.1 cm submitted entirely in 1 cassette(s) /CPE 11/15/2021 1450 Local . 01 Microscopic: . A. An AB/PAS stain is performed to evaluate for specialized intestinal metaplasia, and is negative for goblet cells. A control stain shows appropriate reactivity. . B. An immunohistochemical stain* was performed to evaluate for Helicobacter organisms and is negative. The control stain showed appropriate reactivity. . * This test was developed and its performance characteristics determined by [employer]. It has not been cleared or approved by the U.S. Food and Drug Administration. The FDA has determined that such clearance or approval is not necessary. This test is used for clinical purposes. It should not be regarded as investigational or for research. . 01 Pathologist provided ICD-10: R11.10, K29.70 . 01 CPT . 325977, 215345, R88909 Specimen Comment: A courtesy copy of this report has been sent to [phone] Performed at: 01 [facility] [address] [place] [address] [id number] MD Bryan García MD Phone: [phone]
[2021-11-14 09:04] VITALS: BP 131/71; PULSE 69; RESP 16; TEMP 36.3; O2SAT 99; BMI 31.3
[2021-11-14] MEDS: SODIUM CHLORIDE 0.9% 1,000 ML 84 ML IV (09:14)
--- NOTE | 2021-11-14 10:10 | PM.PREOP ---
Pre-operative Note COVID-19 COVID-19 status: Negative Interval Note History & Physical reviewed/Exam performed by Physician: Yes Changes to H&P: No ASA Class (for procedural sedation): II
--- NOTE | 2021-11-14 10:11 | PM.OP.EGD ---
Operative Date/Time/Diagnoses Date of procedure: 11/14/21 Pre-op diagnosis: See indication and findings Procedure & Clinicians Study performed: EGD Indications: Preoperative evaluation for anti-reflux surgery Surgeon: Lenoor Banks Procedure Notes Procedure in detail: After informed consent was obtained the patient was placed in left lateral decubitus position. The video upper scope was placed into the oropharynx and with the patient's help swelled in the esophagus. The esophagus stomach and duodenum were carefully examined. On withdrawal retroflexed view the GE junction was performed. The scope was removed. The patient tolerated procedure well. Blood loss none Complications none Sedation mac Findings 1. Squamocolumnar junction at approximately 32 cm. Mucosa was sliding a bit. Still, there was a 1 cm tongue of tissue extending above the squamocolumnar junction at times. This was biopsied x2 to rule out Sylvester's esophagus 2. 5-6 cm hiatal hernia with some streaky erythema present down to the diaphragmatic hiatus. This was approximately at 38 cm. There appeared to be a possible small paraesophageal component on 1 aspect. 3. Otherwise some patchy gastric erythema in the distal stomach biopsies taken to rule out Helicobacter 4. Normal duodenal bulb and sweep Will need to set Aleena of for manometry and 24 hour pH studies and then all be in further touch with her.
[2021-11-14 10:37] VITALS: BP 115/75; PULSE 75; RESP 12; TEMP 36.4; O2SAT 98
[2021-11-14 10:46] VITALS: BP 111/66; PULSE 71; RESP 15; O2SAT 96
[2021-11-14 10:51] VITALS: BP 104/56; PULSE 65; RESP 14; TEMP 36.6; O2SAT 97
[2021-11-14 11:01] VITALS: BP 122/61; PULSE 65; RESP 15; O2SAT 98
[2021-11-14 11:06] VITALS: BP 123/61; PULSE 66; RESP 15; TEMP 36.6; O2SAT 98
== END 2021-11-14 11:16 | disposition home or self-care (01) ==
LOC: ENDO 08:43
PROVIDERS: PCP Family Medicine; Referring Provider Internal Medicine Gastroenterology; Visit Provider Internal Medicine Gastroenterology
PROC: 0DJ08ZZ Inspection of Upper Intestinal Tract, Via Natural or Artificial Opening Endoscopic (ICD-10-PCS; CPT 43235; principal; 2021-11-14 10:30)
DX: K21.00 Gastro-esophageal reflux disease with esophagitis, without bleeding (principal); K44.9 Diaphragmatic hernia without obstruction or gangrene; K29.50 Unspecified chronic gastritis without bleeding
CPT/HCPCS: 43239

== ENCOUNTER → 2022-04-05 08:14 | Outpatient (CLI) | payer OTHER, SELFPAY ==
--- NOTE | 2022-04-05 | DI.MG.S_ITS ---
BILATERAL DIGITAL SCREENING MAMMOGRAM 3D/2D WITH CAD: 04/05/2022 CLINICAL: Routine screening. Family history of breast cancer. Comparison is made to exams dated: 04/02/2021 mammogram, 04/11/2016 breast MRI - [facility], and 04/03/2016 mammogram - [facility]. There are scattered fibroglandular elements in both breasts. Current study was also evaluated with a Computer Aided Detection (CAD) system. There are benign calcifications in both breasts. No significant masses, calcifications, or other findings are seen in either breast. There has been no significant interval change. IMPRESSION: BENIGN There is no mammographic evidence of malignancy. A 1 year screening mammogram is recommended. Based on the Tyrer Cuzick model (a risk assessment model) the patient's lifetime risk is 9.1% and her 10 year risk is 5.4%. According to the ACR, ACS, and NCCN guidelines, an annual breast MRI exam along with mammogram is recommended if the patient's lifetime risk is 20% or greater. This exam was interpreted at Station ID: [id number]. NOTE: For mammograms, a report in lay terms will be sent to the patient. Approximately 15% of breast malignancies will not be visualized mammographically. In the management of a palpable breast mass, a negative mammogram must not discourage biopsy of a clinically suspicious lesion. Electronically Signed By: Leon Mandel M.D., jr/rodrigue:04/05/2022 10:56:54 letter sent: Normal Exam ACR BI-RADS Category 2: Benign Finding(s) 3342F
== END ==
PROVIDERS: PCP Family Medicine; Referring Provider Family Medicine; Visit Provider Family Medicine
DX: Z12.31 Encounter for screening mammogram for malignant neoplasm of breast (principal); Z80.3 Family history of malignant neoplasm of breast
CPT/HCPCS: 77063; 77067

== ENCOUNTER 2022-08-17 12:03 | Emergency (ER) | payer OTHER, SELFPAY ==
[2022-08-17 12:07] VITALS: BP 166/104; PULSE 90; RESP 16; TEMP 35.9; O2SAT 96; BMI 28.3
--- NOTE | 2022-08-17 12:12 | DI.RAD.S_ITS ---
PROCEDURE: XR CHEST 2V INDICATIONS: URI sx TECHNIQUE: 2 views of the chest were acquired. COMPARISON: [facility], CR, XR CHEST 2V, 05/04/2021, 12:02. [facility], CR, XR CHEST 2V, 06/04/2021, 10:01. [facility], CR, XR CHEST 2V, 07/25/2021, 10:43. FINDINGS: Surgical changes and devices: Extensive spinal fixation rods can be seen. Lungs and pleura: Minimal streaky opacity can be seen at the left lung base. No pleural effusions or pneumothorax. Mediastinum: Mediastinal contours are normal. Heart size is normal. Bones and chest wall: No suspicious bony abnormalities. Degenerative change and osteopenia can be seen. Soft tissues appear unremarkable. IMPRESSION: Presumed atelectasis is seen at the lung bases. Differential diagnosis includes minimal/early infiltrate, yet this is considered to be less likely. Postoperative and degenerative changes are seen. Dictated by: Luis Stahl M.D. on 08/17/2022 at 11:53 Approved by: Luis Stahl M.D. on 08/17/2022 at 11:54
[2022-08-17 13:09] LABS: Adenovirus Not Detected (Not Detect); B. parapertussis Not Detected (Not Detecte); Bordetella pertussis Not Detected (Not Detecte); Chlamydophila pneumoniae Not Detected (Not Detect); Coronavirus 229E Not Detected (Not Detect); Coronavirus HKU1 Not Detected (Not Detect); Coronavirus NL 63 Not Detected (Not Detect); Coronavirus OC43 Not Detected (Not Detect); Human Metapneumovirus Not Detected (Not Detect); Human Rhinovirus/Enterovirus Not Detected (Not Detect); Influenza A Detected (Not Detect); Influenza B Not Detected (Not Detect); Mycoplasma pneumoniae Not Detected (Not Detect); Parainfluenza Virus 1 Not Detected (Not Detect); Parainfluenza Virus 2 Not Detected (Not Detect); Parainfluenza Virus 3 Not Detected (Not Detect); Parainfluenza Virus 4 Not Detected (Not Detect); Respiratory Syncytial Virus Not Detected (Not Detect); SARS- CoV-2 Not Detected (Not Detecte)
[2022-08-17 14:03] VITALS: BP 179/86; PULSE 89; O2SAT 94
[2022-08-17 14:04] VITALS: BP 178/92; PULSE 80; O2SAT 96
[2022-08-17 14:30] VITALS: PULSE 83; O2SAT 95
--- NOTE | 2022-08-17 14:35 | ED_ITS ---
HPI - URI/Sore Throat General Chief Complaint: Upper Respiratory Symptoms Stated Complaint: Sick/Chills/Fever/SOB/Weak/Dry Heaving Time Seen by Provider: 08/17/22 14:03 Source: patient Mode of arrival: Ambulatory History of Present Illness HPI Narrative: Patient here with spouse. Complains of cough cold congestion for the past 1 week. Patient states has history of pneumonia in the past. Does not smoke. Did not get flu shots this year yet. States has not felt well enough through the months to get a flu shot. No nausea vomiting or diarrhea. Patient in no distress at this time. Related Data Home Medications Medication Instructions Recorded Confirmed acyclovir 800 mg tablet 800 mg PO DAILY 11/13/21 11/14/21 almotriptan malate 12.5 mg tablet 12.5 mg PO PRN PRN Migraine 11/13/21 11/14/21 Headache famotidine 40 mg tablet 40 mg PO DAILY 11/13/21 11/14/21 losartan 25 mg tablet 25 mg PO DAILY 11/13/21 11/14/21 propranolol 20 mg tablet 20 mg PO DAILY 11/13/21 11/14/21 Pepcid 1 tab PO DAILY 11/14/21 11/14/21 omeprazole 40 mg PO DAILY 11/14/21 11/14/21 Previous Rx's Medication Instructions Recorded benzonatate 100 mg capsule 100 mg PO TID PRN cough #20 caps 08/17/22 Allergies Allergy/AdvReac Type Severity Reaction Status Date / Time Penicillins Allergy Verified 08/17/22 12:07 Review of Systems Review of Systems Narrative: GENERAL: Positive chills, fatigue, malaise, fever, sweats. HEENT: negative sinus pain, ear pain, sore throat, positive nasal congestion RESPIRATORY: negative dyspnea, positive cough CARDIOVASCULAR: negative chest pain, palpitations GASTROINTESTINAL: negative nausea, vomiting, abdominal pain : negative dysuria, frequency, hematuria MUSCULOSKELETAL: negative muscle or bony pain SKIN: negative rash, skin lesions NEUROLOGIC: negative weakness, numbness ROS Unobtainable: All systems reviewed & are unremarkable except as noted in HPI and below Patient History Medical History GERD (gastroesophageal reflux disease) Hiatal hernia Normal colonoscopy Pneumonia Rotator cuff tear, right Scoliosis Surgical History H/O foot surgery H/O: hysterectomy History of esophagogastroduodenoscopy (EGD) History of spinal surgery History of tonsillectomy Social History household members: spouse Smoking Status: Never smoker alcohol intake: current Smoking Status: Never smoker alcohol intake frequency: holidays/special occasions only Substance Use Type: marijuana Exam Narrative Exam Narrative: GENERAL: in no distress, not toxic not dyspneic HEAD: Normocephalic. EYES: Pupils equal round No scleral icterus. ENT: Mucous membranes moist. Patient sounds nasally congested. NECK: Trachea midline. CARDIOVASCULAR: Regular rate and rhythm without murmurs RESPIRATORY: Clear to auscultation. Breath sounds equal bilaterally. No wheezes, rales, or rhonchi. Speaking full sentences. No respiratory distress. BACK: No flank tenderness. NEURO: AOx4. SKIN: Warm and dry PSYCH: Not anxious, is cooperative Initial Vital Signs Initial Vital Signs: Vital Signs Temperature 96.7 F L 08/17/22 12:07 Pulse Rate 90 08/17/22 12:07 Respiratory Rate 16 08/17/22 12:07 Blood Pressure 166/104 H 08/17/22 12:07 Pulse Oximetry 96 08/17/22 12:07 Oxygen Delivery Method 08/17/22 12:07 Course Course Course Narrative: No new issues during course of stay Orders Ordered: Discontinued Medications Benzonatate (Benzonatate 100 Mg Capsule) 100 mg PO NOW ONE Stop: 08/17/22 14:36 Last Admin: 08/17/22 14:40 Dose: 100 mg Documented By: SB Reevaluation(s) Reevaluation #1: Reviewed results with patient and . At this time no antibiotics indicated. Patient states has had breathing treatments in the past for pneumonia without any improvement or help. She does not want inhaler. She does agree with Miranda Waggoner. Return precautions reviewed with them. Hydration instructions provided as well and they agree. Time: 14:40 Vital Signs Vital signs: Vital Signs - 8 hr 08/17/22 12:07 08/17/22 14:03 Temperature 96.7 F L Pulse Rate 90 89 Respiratory Rate 16 Blood Pressure 166/104 H 179/86 H Pulse Oximetry 96 94 Oxygen Delivery Method Room Air Room Air MDM - URI/Sore Throat Differential Diagnosis Differential diagnosis: Likely upper respiratory infection, viral infection, bronchitis and influenza Lab Data Labs: Lab Results 08/17/22 Range/Units 12:09 Chlamy pneumoniae PCR Not detected (Not Detect) Adenovirus (PCR) Not detected (Not Detect) B. pertussis DNA (PCR) Not detected (Not Detecte) B.parapertussis DNA PCR Not detected (Not Detecte) Coronavirus OC43 (PCR) Not detected (Not Detect) Coronavirus HKU1 (PCR) Not detected (Not Detect) Coronavirus 229E (PCR) Not detected (Not Detect) SARS-CoV-2 (PCR) Not detected (Not Detecte) Coronavirus NL63 (PCR) Not detected (Not Detect) Human Metapneumovir PCR Not detected (Not Detect) Influenza Type A (PCR) Detected H (Not Detect) Influenza Type B (PCR) Not detected (Not Detect) M. pneumoniae (PCR) Not detected (Not Detect) Parainfluenza 1 (PCR) Not detected (Not Detect) Parainfluenza 2 (PCR) Not detected (Not Detect) Parainfluenza 3 (PCR) Not detected (Not Detect) Parainfluenza 4 (PCR) Not detected (Not Detect) RSV (PCR) Not detected (Not Detect) Entero/Rhino (PCR) Not detected (Not Detect) Imaging Data Chest x-ray: Radiologist's Impression: [address] [id number] ReportSigned Patient: Aleena Newton AMR#: [id number]: 3Acct:[id number]/Sex: 67 / FDate of Service: 08/17/22Loc: EDAccession Number: [id number] Procedure: XR chest 2V Ordering Provider: Vini Merchant MD PROCEDURE: XR CHEST 2V INDICATIONS: URI sx TECHNIQUE: 2 views of the chest were acquired. COMPARISON: [facility], CR, XR CHEST 2V, 05/04/2021, 12:02. [facility], CR, XR CHEST 2V, 06/04/2021, 10:01. [facility], CR, XR CHEST 2V, 07/25/2021, 10:43. FINDINGS: Surgical changes and devices: Extensive spinal fixation rods can be seen. Lungs and pleura: Minimal streaky opacity can be seen at the left lung base. No pleural effusions or pneumothorax. Mediastinum: Mediastinal contours are normal. Heart size is normal. Bones and chest wall: No suspicious bony abnormalities. Degenerative change and osteopenia can be seen. Soft tissues appear unremarkable. IMPRESSION: Presumed atelectasis is seen at the lung bases. Differential diagnosis includes minimal/early infiltrate, yet this is considered to be less likely. Postoperative and degenerative changes are seen. Dictated by: Luis Stahl M.D. on 08/17/2022 at 11:53 Approved by: Luis Stahl M.D. on 08/17/2022 at 11:54 MDM Narrative Medical decision making narrative: Appropriate for discharge home. Exam and laboratory studies and imaging reassuring. No hypoxia no tachypnea. No antibiotics indicated for influenza infection. Patient not toxic. Return precautions reviewed with patient and . They desire discharge home. Discharge Plan Departure Patient Disposition: Home Clinical Impression: Influenza A, Bronchitis Instructions: DI for Acute Bronchitis, DI for Influenza -- Adult Activity Restrictions/Additional Instructions: See family doctor next week for re-evaluation. Prescription for cough medication has been sent to your [facility] in [place]. Be sure to pick that up tonight. Keep well hydrated. Return if worse if any questions or concerns or if any trouble breathing. Prescriptions: New benzonatate 100 mg capsule 100 mg PO TID PRN (Reason: cough) Qty: 20 0RF No Action acyclovir 800 mg tablet 800 mg PO DAILY almotriptan malate 12.5 mg tablet 12.5 mg PO PRN PRN (Reason: Migraine Headache) famotidine 40 mg tablet 40 mg PO DAILY propranolol 20 mg tablet 20 mg PO DAILY losartan 25 mg tablet 25 mg PO DAILY Pepcid 1 tab PO DAILY omeprazole 40 mg PO DAILY Referrals: Aggie Hill MD [Primary Care Provider] - Visit Report Forms: Patient Portal/API
[2022-08-17] MEDS: BENZONATATE 100 MG CAPSULE PO (14:40)
[2022-08-17 14:47] VITALS: BP 142/82; PULSE 79; O2SAT 94
== END 2022-08-17 14:48 | disposition home or self-care (01) ==
PROVIDERS: Emergency Provider Emergency Medicine; PCP Family Medicine
DX: J10.1 Influenza due to other identified influenza virus with other respiratory manifestations (principal); J20.9 Acute bronchitis, unspecified
CPT/HCPCS: 71046; 87633; 99283

== ENCOUNTER → 2022-08-26 14:12 | Outpatient (CLI) | payer OTHER, SELFPAY ==
--- NOTE | 2022-08-26 | DI.RAD.S_ITS ---
PROCEDURE: XR CHEST 2V INDICATIONS: ACUTE COUGH TECHNIQUE: 2 views of the chest were acquired. COMPARISON: [facility], CR, XR CHEST 2V, 08/17/2022, 12:35. FINDINGS: Surgical changes and devices: Thoracolumbar fixation rods are present. Lungs and pleura: Linear opacity is noted in the left base likely atelectasis. Mediastinum: Mediastinal contours are normal. Heart size is normal. Bones and chest wall: No suspicious bony abnormalities. Soft tissues appear unremarkable. IMPRESSION: No consolidations. Dictated by: Luna Gonzales M.D. on 08/26/2022 at 17:03 Approved by: Luna Gonzales M.D. on 08/26/2022 at 17:03
== END ==
PROVIDERS: PCP Family Medicine; Referring Provider Family Medicine; Visit Provider Family Medicine
DX: R05.1 Acute cough (principal)
CPT/HCPCS: 71046

== ENCOUNTER → 2022-10-08 11:54 | Outpatient (CLI) | payer MEDICARE, SELFPAY ==
[2022-10-08 14:07] LABS: Alanine Aminotransferase 49 IU/L (<35); Alkaline Phosphatase 77 U/L (38-126); Aspartate Aminotransferase 36 IU/L (14-36); BUN Creatinine Ratio 20.3 (6-22); Bilirubin Total 0.5 mg/dL (0.2-1.3); Blood Urea Nitrogen 13 mg/dL (7-17); Calcium 9.4 mg/dL (8.4-10.2); Carbon Dioxide 27 mmol/L (22-32); Chloride 103 mmol/L (98-107); Cholesterol 234 mg/dL (140-199); Estimated Glomerular Filt Rate > 60 mL/min (>60); Glucose 105 mg/dL (80-110); HDL Cholesterol 74 mg/dL (40-60); HEMOLYSIS < 15 (0-50); LDL Cholesterol Calculated 135 mg/dL (<100); Potassium 4.3 mmol/L (3.4-5.1); Sodium 140 mmol/L (137-145); Total Protein 7.3 g/dL (6.3-8.2)
[2022-10-08 14:18] LABS: Triglycerides 123 mg/dL (35-150)
[2022-10-11 16:20] LABS: Albumin 4.3 g/dL (3.5-5.0); Albumin Globulin Ratio 1.4 (1.0-2.8)
== END ==
PROVIDERS: PCP Family Medicine; Referring Provider Family Medicine; Visit Provider Family Medicine
DX: E78.5 Hyperlipidemia, unspecified (principal)
CPT/HCPCS: 36415; 80053; 80061

== ENCOUNTER → 2023-01-27 13:10 | Outpatient (CLI) | payer MEDICARE, OTHER, SELFPAY ==
--- NOTE | 2023-01-27 | DI.CT.S_ITS ---
PROCEDURE: CT ABDOMEN PELVIS W CON INDICATIONS: Unspecified abdominal pain TECHNIQUE: After the administration of oral and intravenous contrast, axial sections were acquired from the lung bases to the pubic symphysis. Coronal and sagittal reformats were performed. For radiation dose reduction, the following was used: automated exposure control, adjustment of mA and/or kV according to patient size. COMPARISON:[facility], CT, CT CHEST W CON, 01/08/2021, 12:06. FINDINGS: Image quality: Limited due to extensive artifact from the patient's spinal fusion hardware. Lung bases: No pleural effusion ABDOMEN: Liver: Scattered cysts and other hypodensities too small to characterize, some appear similar to the imaged portions of the liver on prior chest CT. Gallbladder: Unremarkable. Biliary ducts: Unremarkable. Pancreas: Unremarkable. Spleen: Unremarkable. Adrenal Glands: Unremarkable. Kidneys and Ureters: No hydronephrosis Stomach and Bowel: Small hiatal hernia. No evidence of mechanical small bowel obstruction. Peritoneum: No free air or substantial free fluid identified. Small foci of anterior peritoneal/omental nodularity present, for example series 3, image 33. Abdominal Nodes: Evaluation for retroperitoneal adenopathy is limited due to extensive streak artifact from spinal fusion hardware. No definite abdominal adenopathy identified Vessels: Aorta and inferior vena cava are normal in size. PELVIS: Pelvic Organs: The uterus is not visualized and is presumed surgically absent. Bladder: Unremarkable. Pelvic Nodes: No enlarged lymph nodes. Bones: Partially imaged extensive spinal fusion hardware involving the thoracic spine through the sacrum. IMPRESSION: 1. No definite acute appearing abnormality identified within the abdomen or pelvis. 2. Small foci of anterior peritoneal/omental nodularity are present, indeterminate. In the absence of known neoplasm, these may represent areas of fat necrosis but metastatic disease/carcinomatosis cannot be excluded. Could consider imaging follow-up to ensure stability, such as in 3 months or other interval at clinical discretion. Dictated by: Lio Saenz M.D. on 01/27/2023 at 16:43 Approved by: Lio Saenz M.D. on 01/27/2023 at 17:03
== END ==
PROVIDERS: PCP Family Medicine; Referring Provider Family Medicine; Visit Provider Family Medicine
DX: K44.9 Diaphragmatic hernia without obstruction or gangrene (principal); R10.9 Unspecified abdominal pain; R11.0 Nausea; R68.81 Early satiety; R19.7 Diarrhea, unspecified; K62.5 Hemorrhage of anus and rectum; Z98.1 Arthrodesis status
CPT/HCPCS: 74177; Q9967

== ENCOUNTER → 2023-10-17 08:05 | Outpatient (CLI) | payer MEDICARE, OTHER, SELFPAY ==
[2023-10-17 09:37] LABS: Add Manual Diff / Slide Review NO; Basophils Absolute Auto 0 /uL (0-100); Basophils Percent Auto 0.2 % (0-2); Eosinophils Absolute Auto 100 /uL (0-450); Eosinophils Percent Auto 0.9 % (2-4); Hematocrit 40.9 % (36-46); Hemoglobin 13.6 g/dL (12.0-16.0); Lymphocytes Absolute Auto 3100 /uL (1100-4500); Lymphocytes Percent Auto 23.6 % (25-40); Mean Corpuscular HGB Conc 33.1 % (30-36); Mean Corpuscular Hemoglobin 31.2 PG (26-34); Mean Corpuscular Volume 94.2 fL (80-100); Monocytes Absolute Auto 900 /uL (0-900); Monocytes Percent Auto 6.9 % (3-14); Neutrophils Absolute Auto 9000 /uL (1500-7000); Neutrophils Percent Auto 68.4 % (50-75); Platelet Count 351 X10^3/uL (150-400); Red Blood Cell Count 4.34 X10^6/uL (4.0-5.2); Red Cell Distribution Width 14.3 % (11.6-14.8); White Blood Cell Count 13.2 X10^3/uL (4.5-11.0)
[2023-10-17 10:09] LABS: Alanine Aminotransferase 32 IU/L (<35); Albumin 4.4 g/dL (3.5-5.0); Albumin Globulin Ratio 1.6 (1.0-2.8); Alkaline Phosphatase 54 U/L (38-126); Aspartate Aminotransferase 32 IU/L (14-36); BUN Creatinine Ratio 43.5 (6-22); Bilirubin Total 0.6 mg/dL (0.2-1.3); Blood Urea Nitrogen 27 mg/dL (7-17); Carbon Dioxide 29 mmol/L (22-32); Chloride 100 mmol/L (98-107); Cholesterol 244 mg/dL (140-199); Estimated Glomerular Filt Rate > 60 mL/min (>60); Globulin 2.8 g/dL (1.7-4.1); Glucose 104 mg/dL (80-110); HDL Cholesterol 49 mg/dL (40-60); HEMOLYSIS < 15 (0-50); LDL Cholesterol Calculated 153 mg/dL (<100); Potassium 4.4 mmol/L (3.4-5.1); Sodium 137 mmol/L (137-145); Total Protein 7.2 g/dL (6.3-8.2); Triglycerides 212 mg/dL (35-150); VLDL Cholesterol Calculated 42 mg/dL (2-30)
[2023-10-17 10:25] LABS: Free T4, Direct Thyroxine 0.96 ng/dL (0.78-2.19)
[2023-10-17 10:39] LABS: Thyroid Stimulating Hormone 1.03 uIU/mL (0.47-4.68)
== END ==
LOC: LAB 08:09
PROVIDERS: PCP Family Medicine; Referring Provider Family Medicine; Visit Provider Family Medicine
DX: E78.5 Hyperlipidemia, unspecified (principal); I10 Essential (primary) hypertension
CPT/HCPCS: 36415; 80053; 80061; 84439; 84443; 85025

== ENCOUNTER → 2024-01-13 13:37 | Outpatient (CLI) | payer MEDICARE, OTHER, SELFPAY ==
--- NOTE | 2024-01-13 13:39 | DI.RAD.S_ITS ---
PROCEDURE: XR DEXA AXIAL SKELETON INDICATIONS: Other specified disorders of bone density COMPARISON: [facility], , XR DEXA AXIAL SKELETON, 04/02/2021, 9:56. [facility], , DEXA AXIAL SKELETON, 12/31/2017, 14:34. FINDINGS: Left Hip: Bone mineral density 0.826 g/cm2, T score -0.9. Left Femoral Neck: Bone mineral density 0.721 g/cm2, T score -1.2. Right Hip: Bone mineral density 0.892 g/cm2, T score -0.4. Right Femoral Neck: Bone mineral density 0.755 g/cm2, T score -0.8. Left Forearm: Bone mineral density 0.633 g/cm2, T score -1.0. Fracture Risk Calculation (when applicable): 10-year fracture risk of a major osteoporotic fracture 9.1% and of a hip fracture 1.0%. (T score greater or equal to -1.0 to: NORMAL) (T score from -1.1 to -2.4: OSTEOPENIA) (T score less than or equal to -2.5: OSTEOPOROSIS) IMPRESSION: 1. Osteopenia Dictated by: Russel Junior M.D. on 01/13/2024 at 20:34 Approved by: Russel Junior M.D. on 01/13/2024 at 20:36
== END ==
PROVIDERS: PCP Family Medicine; Referring Provider Family Medicine; Visit Provider Family Medicine
DX: M85.89 Other specified disorders of bone density and structure, multiple sites (principal)
CPT/HCPCS: 77080

== ENCOUNTER → 2024-04-21 14:41 | Outpatient (CLI) | payer MEDICARE, SELFPAY ==
--- NOTE | 2024-04-21 14:42 | DI.MG.S_ITS ---
BILATERAL DIGITAL SCREENING MAMMOGRAM 3D/2D WITH CAD: 04/21/2024 CLINICAL: Routine screening. Family history of breast cancer. Comparison is made to exams dated: 04/05/2022 mammogram and 04/02/2021 mammogram - [facility]. There are scattered areas of fibroglandular density in both breasts (category b / 25%-50% glandular tissue). Current study was also evaluated with a Computer Aided Detection (CAD) system. There are benign calcifications in both breasts. There also are benign vascular calcifications in the left breast. No significant masses, calcifications, or other findings are seen in either breast. There has been no significant interval change. IMPRESSION: BENIGN There is no mammographic evidence of malignancy. A 1 year screening mammogram is recommended. Based on the Tyrer Cuzick model (a risk assessment model) the patient's lifetime risk is 8.1% and her 10 year risk is 5.6%. According to the ACR, ACS, and NCCN guidelines, an annual breast MRI exam along with mammogram is recommended if the patient's lifetime risk is 20% or greater. This exam was interpreted at Station ID: [id number]. NOTE: For mammograms, a report in lay terms will be sent to the patient. Approximately 15% of breast malignancies will not be visualized mammographically. In the management of a palpable breast mass, a negative mammogram must not discourage biopsy of a clinically suspicious lesion. Electronically Signed By: Russel hopkins/[email or web address]:04/21/2024 16:36:21 letter sent: Normal Exam ACR BI-RADS Category 2: Benign Finding(s) 3342F
== END ==
PROVIDERS: PCP Family Medicine; Referring Provider Family Medicine; Visit Provider Family Medicine
DX: Z12.31 Encounter for screening mammogram for malignant neoplasm of breast (principal); Z80.3 Family history of malignant neoplasm of breast; R92.323 Mammographic fibroglandular density, bilateral breasts
CPT/HCPCS: 77063; 77067